=== PATIENT | female | born 1980 | race Caucasian/White ===

== ENCOUNTER 2018-11-28 19:32 | Emergency (ER) | payer MEDICAID ==
[~2018-11-28] VITALS: Ht 157.5 cm; Wt 65.0 kg
[2018-11-28 20:22] VITALS: BP 132/87
== END 2018-11-28 22:21 | disposition left against medical advice (07) ==
LOC: ER 19:32
DX: Z53.21 Procedure and treatment not carried out due to patient leaving prior to being seen by health care provider (principal)